=== PATIENT | male | born 1965 | race Caucasian/White ===

== ENCOUNTER 2024-09-13 11:18 | Emergency (ER) | payer SELFPAY ==
[2024-09-13 11:23] VITALS: BP 131/90
[2024-09-13 11:53] LABS: % Basophils 0.3 % (0-2); % Immature Granulocytes 0.5 % (0-0.5); % Lymphocytes 11.5 % (20.5-51.1); % Neutrophils 73.7 % (42.2-75.2); Absolute Lymphocytes 0.9 10^3/uL (1.2-3.4); Absolute Monocytes 1.1 10^3/uL (0.1-0.6); Absolute Neutrophils 5.6 10^3/uL (1.4-6.5); Hematocrit 43.8 % (39.0-52.0); Hemoglobin 14.9 g/dL (13.0-18.0); Mean Corpuscular Hgb 30.5 pg (27.0-31.0); Mean Corpuscular Volume 89.6 fL (80.0-94.0); Nucleated Red Blood Cells % 0 % (-); Platelet Count 185 10^3/uL (130-400); Red Blood Cell Count 4.89 10^6/uL (4.70-6.10); Red Cell Dist. Width 13.9 % (11.5-14.5); White Blood Cell Count 7.6 10^3/uL (4.8-10.8)
--- NOTE | 2024-09-13 12:03 | ED.SKININJ ---
Addendum entered and electronically signed by Zahra Pires NP 09/16/24 09:25:
Message left on pt phone. Pt notified of +MRSA blood cultures. They will return. She states is not acting any more sick but he's a tough old bird and has been walking around the house moaning, when she asks if he has a fever he states 'I don't
know.'
Instructed to return.
He has appointment with Dr. Antoine tomorrow.
Original Note:
HPI-Injury
<Levon Lozano PA-C - Last Filed: 09/13/24 18:40>
General
Chief Complaint: Skin Problem
Time Seen by Provider: 09/13/24 11:51
History of Present Illness-Injury
Is this injury a work related problem?: Yes
Is pt an associate of [facility]?: No
Initial Injury comments:
Patient is a 59-year-old male with no reported chronic medical problems here today with concern for a possible infection to his skin. He reports over the past 2 days he has had discoloration along the distal tips of some of his fingers most
pronounced along the right third finger with associated redness. There is mild pain that comes and goes and at times is severe in nature. No fevers. No pus or drainage noted. No vomiting. Patient has had a prior staph infection and has
previously required surgical treatment secondary to a finger infection in 2010. He also reports working in the cold.
Review of Systems
<Levon Lozano PA-C - Last Filed: 09/13/24 18:40>
Review of Systems
All Other Systems: ROS reviewed and negative except as documented in HPI and ROS
Phy Exam
<Levon Lozano PA-C - Last Filed: 09/13/24 18:40>
Physical Exam
Physical Exam:
GENERAL: Alert , in no apparent distress
EYE: pupils equal and reactive
NECK: Supple
SKIN: Warm and dry, skin intact.
MUSCULOSKELETAL: There is mild hyperpigmentation/dusky appearance along the majority of the fingertips along the bilateral hands, there are scattered dried scabbed over wounds along the distal tips of some of the fingers, along the right third
finger is a moderate amount of swelling with erythema and tenderness extending proximally, range of motion is intact, pulses 2+ throughout, sensation intact
PSYCH: Normal and appropriate interaction.
Course
<Levon Lozano PA-C - Last Filed: 09/13/24 18:40>
Orders/Labs/Results
Orders:
Orders
09/13/24 11:34
Complete Blood Count/With Diff Urgent
Comprehensive Metabolic Panel Urgent
09/13/24 12:06
CR Hand - Left Min 3 Views Urgent
Comment:
Reason For Exam: finger wounds
CR Hand - Right Min 3 Views Urgent
Comment:
Reason For Exam: finger wounds
09/13/24 12:07
Hydrocodone 5/APAP 325 [[place] 5/325] 1 tablet PO NOW STA
09/13/24 12:34
CRP [C-Reactive Protein] Urgent
ESR [Erythrocyte Sed Rate] Urgent
Lactic Acid Urgent
Blood Culture Q30M
CA Source: Blood/Venous
Specimen Description:
Blood Culture Q30M
CA Source: Blood/Venous
Specimen Description:
09/13/24 15:48
Hydrocodone 5/APAP 325 [[place] 5/325] 1 tablet PO NOW STA
Abnormal Lab Results
09/13/24 09/13/24
11:34 12:34
Absolute Lymphs (auto) 0.9 L 10^3/uL
(1.2-3.4)
Absolute Monos (auto) 1.1 H 10^3/uL
(0.1-0.6)
Lymphocytes % 11.5 L %
(20.5-51.1)
Monocytes % 14.0 H %
(1.7-9.3)
Sodium 134 L mmol/L
(135-145)
BUN 26 H mg/dl
(9-20)
Glucose 117 H mg/dl
(70-99)
C-Reactive Protein 48.10 H mg/L
(0.0-10.00)
09/13/24 11:34
09/13/24 11:34
Vital Signs
Initial and Last Documented VS:
Initial Vital Signs
Temp Pulse Resp BP Pulse Ox
98.4 F 71 18 131/90 94
09/13/24 11:23 09/13/24 11:23 09/13/24 11:23 09/13/24 11:23 09/13/24 11:23
Last Documented Vital Signs
Temp Pulse Resp BP Pulse Ox
98.4 F 84 18 135/88 95
09/13/24 11:23 09/13/24 19:00 09/13/24 19:00 09/13/24 19:00 09/13/24 19:00
<Eb Moran, DO - Last Filed: 09/14/24 22:34>
Orders/Labs/Results
Orders:
Orders
09/13/24 11:34
Complete Blood Count/With Diff Urgent
Comprehensive Metabolic Panel Urgent
09/13/24 12:06
CR Hand - Left Min 3 Views Urgent
Comment:
Reason For Exam: finger wounds
CR Hand - Right Min 3 Views Urgent
Comment:
Reason For Exam: finger wounds
09/13/24 12:07
Hydrocodone 5/APAP 325 [[place] 5/325] 1 tablet PO NOW STA
09/13/24 12:34
CRP [C-Reactive Protein] Urgent
ESR [Erythrocyte Sed Rate] Urgent
Lactic Acid Urgent
Blood Culture Q30M
CA Source: Blood/Venous
Specimen Description:
Blood Culture Q30M
CA Source: Blood/Venous
Specimen Description:
09/13/24 15:48
Hydrocodone 5/APAP 325 [[place] 5/325] 1 tablet PO NOW STA
Abnormal Lab Results
09/13/24 09/13/24
11:34 12:34
Absolute Lymphs (auto) 0.9 L 10^3/uL
(1.2-3.4)
Absolute Monos (auto) 1.1 H 10^3/uL
(0.1-0.6)
Lymphocytes % 11.5 L %
(20.5-51.1)
Monocytes % 14.0 H %
(1.7-9.3)
Sodium 134 L mmol/L
(135-145)
BUN 26 H mg/dl
(9-20)
Glucose 117 H mg/dl
(70-99)
C-Reactive Protein 48.10 H mg/L
(0.0-10.00)
09/13/24 11:34
09/13/24 11:34
Vital Signs
Initial and Last Documented VS:
Initial Vital Signs
Temp Pulse Resp BP Pulse Ox
98.4 F 71 18 131/90 94
09/13/24 11:23 09/13/24 11:23 09/13/24 11:23 09/13/24 11:23 09/13/24 11:23
Last Documented Vital Signs
Temp Pulse Resp BP Pulse Ox
98.4 F 84 18 135/88 95
09/13/24 11:23 09/13/24 19:00 09/13/24 19:00 09/13/24 19:00 09/13/24 19:00
<Levon Lozano PA-C - Last Filed: 09/13/24 18:40>
MDM/Problems Addressed
Differential Diagnosis Includes:
Patient is a 59-year-old male with no reported chronic medical problems here today with concern for a possible infection to his skin. Overall, patient appears well. Vitals grossly within normal limits aside from a mildly elevated blood pressure.
Physical examination described above. I am concerned for a possible skin infection of the fingers given appearance. Will begin with screening labs and x-rays. Will provide pain control.
09/13/2024 18:03: Screening labs without evidence of significant infectious process. CRP elevated. X-rays of the hands reveal findings consistent with acro osteolysis involving the distal crissy of the second and third fingers of both hands, likely
related to frostbite injury. Case was discussed with orthopedic hand surgeon, Dr. Antoine. He recommends discharge with close outpatient follow-up with hand surgery next week. He also recommends re-warming techniques with 'heat any way is fine'.
Patient made aware of plan. Case also discussed with the ED attending, Dr. Bennett. Plans for discharge with close outpatient follow-up. Patient voiced understanding of the above plan. He appears well and stable for discharge. All questions
answered.
<Levon Lozano PA-C - Last Filed: 09/13/24 18:40>
*Critical Care Note
Total Time (30-74mins, 75-104mins- exclusive of procedures): Not Applicable
<Eb Moran DO - Last Filed: 09/14/24 22:34>
Update Note
Update Note:
Called patient on 09/14/2024 at 10:33 PM to discuss blood culture results, and 1 single culture showed gram-positive cocci in clusters, suspect contaminant. Patient denies any fevers. He will follow-up with Dr. Antoine. Return precautions given.
ED Attending Note
<Levon Lozano PA-C - Last Filed: 09/13/24 18:40>
-
Portions of this chart may have been created with voice recognition software.� Occasional wrong word or��sound alike� substitutions may have occurred due to the inherent limitations of voice recognition software.
Discharge Plan
Departure
Patient Disposition: Home (Routine Discharge)
Date of Disposition: 09/13/24
Time of Disposition: 18:39
Patient with high blood pressure during this ER visit?: Yes
Condition: Fair
Covid-19: Not Applicable
Discharge Problem:
Frostbite of finger of right hand, Frostbite of finger of left hand, Acro osteolysis syndrome
Instructions: Frostbite (DC)
Prescriptions:
New
hydrocodone-acetaminophen 5-325 mg tablet
1 tab PO Q8H PRN (Reason: Pain) Qty: 9 0RF
No Action
Theragen Tablet
1 tab PO DAILY
ibuprofen [Advil] 200 mg Tablet
200 mg PO Q6HPRN PRN (Reason: mild pain)
Referrals:
Johnie Antoine MD [Active] - Follow up in 5-7 days
UNKNOWN - PT DOES,NOT KNOW [Family Provider] -
Stand Alone Forms: Return to Work
Activity Restrictions/Additional Instructions:
You were seen today for evaluation of discoloration and pain along your fingertips.
You have evidence of frostbite.
We discussed your case with orthopedics who recommends rewarming over the next 5 to 7 days.
For pain, we are prescribing you hydrocodone�acetaminophen to take as directed. Avoid taking additional Tylenol with this medication. This may cause drowsiness. No driving, drinking alcohol, or operating machinery with this medication.
Please avoid cold weather and using your fingers.
We recommend following up with the orthopedic hand surgery team within the next 5 to 7 days for close reevaluation.
Return for any new, worsening, or concerning symptoms.
Interventions
Interventions:
*Risk Screen - Suicide Last Done: 09/13/24 11:23
*General Assessment Last Done: 09/13/24 11:23
*Neglect/Abuse Screening Last Done: 09/13/24 11:23
ED- Fall Risk Assessment Last Done: 09/13/24 17:15
*ED COVID-19 Vaccine History Last Done: 09/13/24 16:07
*Nursing Disposition Last Done: 09/13/24 17:15
ED-Skin Assessment Last Done: 09/13/24 17:15
Discharge Date and Time
Discharge Date/Time: 09/13/24 19:35
Print Language: THAI
[2024-09-13 12:05] VITALS: BP 141/78
[2024-09-13 12:06] LABS: ALT (SGPT) 27 U/L (0-50); AST (SGOT) 48 U/L (17-59); Albumin 4.6 g/dl (3.5-5.0); Alkaline Phosphatase 91 U/L (38-126); Blood Urea Nitrogen 26 mg/dl (9-20); Carbon Dioxide 22 mmol/L (22-30); Chloride 100 mmol/L (98-107); Glucose 117 mg/dl (70-99); Potassium 4.2 mmol/L (3.5-5.1); Sodium 134 mmol/L (135-145); Total Bilirubin 0.6 mg/dl (0.2-1.3); Total Protein 7.2 g/dl (6.3-8.2); eGFR > 60.00
[2024-09-13] MEDS: NORCO 5/325 1 TABLET PO ×2 (12:17→15:53)
[2024-09-13 13:13] LABS: Lactic Acid 1.4 mmol/L (0.7-2.0)
[2024-09-13 13:30] VITALS: BP 141/80
[2024-09-13 13:31] LABS: Erythrocyte Sed Rate 19 mm/hour (0-20)
[2024-09-13 16:30] VITALS: BP 127/95
[2024-09-13 19:00] VITALS: BP 135/88
== END 2024-09-13 19:35 | disposition home or self-care (01) ==
LOC: EMR 11:18
PROVIDERS: Physician Assistant; EMERGENCY PHYSICIAN Emergency Medicine
DX: T33.539A Superficial frostbite of unspecified finger(s), initial encounter (principal); X58.XXXA Exposure to other specified factors, initial encounter
CPT/HCPCS: 99283; 73130; 80053; 83605; 85025; 85652; 86140; 87040; 87150; 87186; 87205

== ENCOUNTER 2024-09-16 15:36 | Inpatient (IN) | payer BC, SELFPAY ==
[2024-09-16 11:05] VITALS: BP 148/94
--- NOTE | 2024-09-16 12:46 | ED.MUSCINJ ---
HPI-Injury
General
Chief Complaint: Soft Tissue Injury
Source: patient and spouse
Exam Limitations: none
Time Seen by Provider: 09/16/24 12:36
Nursing documentation reviewed up to this point in time: agreed with
History of Present Illness-Injury
Initial Injury comments:
59-year-old male seen here on 09/13 for frostbite of his fingers and diagnosed with acro osteolysis and discharged to follow-up with a hand specialist. He has an appointment with Dr. nAtoine tomorrow.
Today his blood culture came back positive with staph aureus MRSA so he was called to come back.
Patient states he has been in pain with his hands since his first visit, he is felt chilled, has not been feeling 'well.' He states he had really bad chills Monday and Monday night at bedtime and throughout the night both nights.
He denies chest pain or trouble breathing, denies abdominal pain, N/V/C/D
Past History
Past History
ED Past Medical History: Other
ED Past Surgical History: Orthopedic (R index finger infection 2010, removal of finger tip)
Social History
Tobacco: Smoker
Personal:
Living: with family
Employment: Employed
Review of Systems
Review of Systems
Allergies reviewed?: Yes
All Other Systems: ROS reviewed and negative except as documented in HPI and ROS
Constitutional: Reports fever and chills
EENT: Reports other (sores on upper and lower lips); Denies sore throat
Respiratory: Denies cough or trouble breathing
Cardiac: Denies chest pain or diaphoresis
ABD/GI: Denies abdominal pain, nausea, vomiting or diarrhea
: Denies dysuria or difficulty voiding
Skin: Reports other (discoloration, sores on tips of fingers both hands)
Neurological: Reports no symptoms
Phy Exam
Physical Exam
Physical Exam:
GENERAL: No acute distress. A&Ox3.
CONSTITUTIONAL: Afebrile.
EYES: clear, conjunctivae normal
ENMT: moist mucus membranes, Pharynx nl
RESPIRATORY: Regular respirations, nonlabored, lungs clear.
CARDIOVASCULAR: Regular rate and rhythm, no murmurs, no rubs.
GI: Soft, nontender, normal BS
MUSCULOSKELETAL: Moves with ease. Well perfused.
SKIN: Warm, dry, pink. Crusted sores on upper and lower lips. Right middle finger black at the tip, swollen and mildly erythematous. Right thumb, middle and ring fingers have tiny scabs at the tips and are swollen and mildly erythematous. Left
thumb, index and middle fingertips also with small scabs and erythema.
PSYCH: Normal mood and affect. Well kept, interactive and appropriate
NEUROLOGIC: Awake, alert and oriented. No focal neurological deficits
Injury Course
Orders/Labs/Results
Orders:
Orders
09/16/24 Lunch
Regular
At Your Request: Full Participation
09/16/24 13:05
Complete Blood Count/With Diff Urgent
Comprehensive Metabolic Panel Urgent
Blood Culture Q30M
CA Source: Blood/Venous
Specimen Description:
Blood Culture Q30M
CA Source: Blood/Venous
Specimen Description:
09/16/24 13:37
Vancomycin [Vancocin] 1,500 mg 0.9% Sodium Chloride 500 ml [Nss] 500 ml IV NOW
09/16/24 14:52
ORTHOPEDIC CONSULT Urgent
Consulting Provider: Johnie Antoine
Was physician already notified: Yes
Reason for consult: acro osteolysis fingers both hands
09/16/24 14:53
Admit/Transfer Patient As Directed
Co-Sign Provider:
Level of Care: Inpatient admission
Assign to:: Medical/Surgical
Physician / Group: Hospitalist
Diagnosis: acro-osteolysis, Bacteremia
Reason for Hospitalization: as above
Expected length of stay greater than two midnights?: Yes
ELOS- Estimated Length of Stay in days: 3
I certify the patient meets the requirements for IP care: Yes
09/16/24 14:58
Code Status As Directed
Resuscitation Status: Full Code
09/16/24 15:59
Consult Infectious Disease [INFECTIOUS DISEASE CONSULT] Routine
Consulting Provider: Loren Hanley
Was physician already notified: Yes
Reason for consult: bacteremia
Abnormal Lab Results
09/16/24
13:05
RBC 4.41 L 10^6/uL
(4.70-6.10)
Calcium 7.5 L mg/dl
(8.4-10.2)
Total Protein 5.7 L g/dl
(6.3-8.2)
09/16/24 13:05
09/16/24 13:05
MDM/Problems Addressed
Differential Diagnosis Includes:
Bacteremia, sepsis, cellulitis of the fingers
MDM/Problems Addressed:
59-year-old male seen here on 09/13 for frostbite of his fingers and diagnosed with acro osteolysis and discharged to follow-up with a hand specialist. He has an appointment with Dr. Antoine tomorrow.
Today his blood culture came back positive with staph aureus MRSA so he was called to come back.
Patient states he has been in pain with his hands since his first visit, he is felt chilled, has not been feeling 'well.' He states he had really bad chills Monday and Monday night at bedtime and throughout the night both nights.
He denies chest pain or trouble breathing, denies abdominal pain, N/V/C/D
Patient states the discoloration and swelling of his fingers is much improved since initial visit. The fingers are still painful and he has been taking Vicodin once or twice a day.
states he has been writhing around in pain much of the time, laying on the floor by their fireplace to get warm
Temp 99.1
2:00 p.m.
Returns today for positive blood cultures MRSA, attempt to admit for IV antibiotics but hospitalist wants ortho exam in case he has to be transferred to a burn center. He states his fingers are improving.
2:30 p.m.
Contacted orthopedic doctor precision crop manager Dr. Lai who requested I contact Dr. Antoine.
Sent Dr. Antoine pictures of hands/fingers: he texted back: 'can see him while he is in the hospital
but most likely won�t do anything'
Hospitalist notified and in to admit
Vancomycin started.
Blood cx pending
*Critical Care Note
Total Time (30-74mins, 75-104mins- exclusive of procedures): Not Applicable
ED Attending Note
-
Portions of this chart may have been created with voice recognition software.� Occasional wrong word or��sound alike� substitutions may have occurred due to the inherent limitations of voice recognition software.
Discharge Plan
Departure
Patient Disposition: Admit
Date of Disposition: 09/16/24
Time of Disposition: 13:34
Admit to: Med/Surg
Presentation/result/management discussed w/ accepting MD/DO: Hospitalist
Condition: Fair
Discharge Problem:
Bacteremia due to methicillin resistant Staphylococcus aureus, Acro-osteolysis syndrome
Interventions
Interventions:
*Risk Screen - Suicide Last Done: 09/16/24 11:05
*Neglect/Abuse Screening Last Done: 09/16/24 11:05
ED- Fall Risk Assessment Last Done: 09/16/24 12:15
ED-Skin Assessment Last Done: 09/16/24 12:15
[2024-09-16 13:17] LABS: % Basophils 0.2 % (0-2); % Eosinophils 0.2 % (0-6); % Immature Granulocytes 0.3 % (0-0.5); % Lymphocytes 20.9 % (20.5-51.1); % Monocytes 8.7 % (1.7-9.3); % Neutrophils 69.7 % (42.2-75.2); Absolute Lymphocytes 1.2 10^3/uL (1.2-3.4); Absolute Monocytes 0.5 10^3/uL (0.1-0.6); Absolute Neutrophils 4.1 10^3/uL (1.4-6.5); Hematocrit 39.9 % (39.0-52.0); Hemoglobin 13.6 g/dL (13.0-18.0); Mean Corp Hgb Conc. 34.1 g/dL (33.0-37.0); Mean Corpuscular Hgb 30.8 pg (27.0-31.0); Mean Corpuscular Volume 90.5 fL (80.0-94.0); Mean Platelet Volume 9.3 fL (7.4-10.4); Nucleated Red Blood Cells % 0 % (-); Platelet Count 143 10^3/uL (130-400); Red Blood Cell Count 4.41 10^6/uL (4.70-6.10); Red Cell Dist. Width 13.6 % (11.5-14.5); White Blood Cell Count 5.8 10^3/uL (4.8-10.8)
[2024-09-16 13:31] LABS: ALT (SGPT) 19 U/L (0-50); AST (SGOT) 26 U/L (17-59); Albumin 3.6 g/dl (3.5-5.0); Alkaline Phosphatase 72 U/L (38-126); Blood Urea Nitrogen 17 mg/dl (9-20); Calcium 7.5 mg/dl (8.4-10.2); Carbon Dioxide 22 mmol/L (22-30); Chloride 106 mmol/L (98-107); Glucose 98 mg/dl (70-99); Potassium 3.7 mmol/L (3.5-5.1); Sodium 137 mmol/L (135-145); Total Bilirubin 0.5 mg/dl (0.2-1.3); Total Protein 5.7 g/dl (6.3-8.2); eGFR > 60.00
[2024-09-16 13:37] VITALS: BP 148/76
[2024-09-16] MEDS: VANCOCIN 530 MG IV (14:42)
--- NOTE | 2024-09-16 15:05 | HPS.HSE ---
Addendum entered and electronically signed by Bill Mckeon MD 09/16/24 18:16:
Presented after recent ed visit for frostbite injury on the digits with xray showing acro osteolysis, worse on the riight hand, with most pain focused on the stump of the 3rd digit. Returned for + bcx with mrsa.
MRSA bacteremia
-Vanc 15mg/kg, goal trough 18-20 (or per ID/pharmacy)
-Repeat bcx x2 30mins apart
-2d echo
-ID consult
Acro Osteolysis
-Ortho consulted
-Wound care
Right elbow pain (states he has metal shaving embedded in his elbow from working)
-Will check xray right elbow
Right ankle pain (states from chipped bone)
-Check ankle xray
Original Note:
Family Physician
-
Family Physician: Shannan Vazquez
Chief Complaint
-
Bilateral finger pain and discoloration
History of Present Illness
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
bilateral hand. Patient was recently in the ED 09/13/2024 due to frostbites of some of his fingers. X-ray of bilateral fingers at the ED visit 09/13 showed acro-osteolysis involving the distal crissy of the second and third fingers of both hands,
likely related to frostbite injury. At that ED visit, cultures were obtained and he was discharged to follow-up Ortho as an outpatient. Cultures returned back positive for MRSA Staph aureus 1 out of 2. Patient states pain was uncontrollable
despite taking Percocet, and with positive MRSA bacteremia was asked to return back to the ED. At bedside today, he denies fever, chills. He admits right elbow pain and right ankle bony spur ongoing for the past few months. Patient works at a
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
On presentation to ER, BP 148/76, pulse 62, respiratory rate 18, afebrile, with O2 sat 97% on room air. CBC with WBC 5.8, hemoglobin 13.6, hematocrit 39.9, platelets 143. Electrolytes showed sodium 137, potassium 3.7, creatinine 0.7.
Medical History
Past Medical History
Past Medical History: Reports Other (Right index DIP osteomyelitis s/p trauma to finger)
Past Surgical History: Reports Other (Right index fingertip at the DIP joint level amputation)
Social History
Tobacco: Smoker (1 pack/day)
Alcohol: Occasional
Drug: None
Personal:
Living: With Family
Employment: Employed
Family History
Family History: Not pertinent
Allergies / Home Medications
Allergies reflects when Allergies were last updated in [facility].
Home Medications with original date entered in [facility]
Allergy/Medication List:
Allergies
Allergy/AdvReac Type Severity Reaction Status Date / Time
Penicillins Allergy Unknown Unknown Verified 09/16/24 11:05
Home Medications
ibuprofen 200 mg tablet (Advil) 200 mg PO Q6HPRN PRN mild pain 09/13/24
hydrocodone 5 mg-acetaminophen 325 mg tablet 1 tab PO Q8HPRN PRN mild Pain 09/16/24
Review of Systems
-
History Source: Patient
Constitutional: Reports See HPI
Cardiac: Denies Chest Pain or Diaphoresis
Musculoskeletal: Reports See HPI
Physical Exam
Vital Signs
Vital Signs
Temp Pulse Resp BP Pulse Ox
99.1 F 62 18 148/76 97
09/16/24 11:05 09/16/24 13:37 09/16/24 13:37 09/16/24 13:37 09/16/24 13:37
Physical Exam
General: Well Developed, Well Nourished and No Apparent Distress
HEENT: Other (Oral erythematous crusted sores present on the upper and lower lips)
Respiratory: Clear
Cardiac: S1/S2 and Regular Rhythm; No Murmur
GI: Soft, Non Tender, Non Distended and Normal Bowel Sounds
Musculoskeletal: Other (Right elbow pain, )
Skin: Other (On the right hand, right thumb, middle and ring distal phalanx with eschar present at the tip. On the left hand, left thumb, index, middle distal phalanx with eschar present at the tip)
Neuro: Awake, Alert, Oriented and AO x 3
Psych: Calm
Laboratory Results
-
09/16/24 13:05
09/16/24 13:05
Laboratory Results
Total Bilirubin 0.5 mg/dl (0.2-1.3) 09/16/24 13:05
AST 26 U/L (17-59) 09/16/24 13:05
ALT 19 U/L (0-50) 09/16/24 13:05
Alkaline Phosphatase 72 U/L (38-126) 09/16/24 13:05
Impression/Plan
-
Assessment/plan
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
-Ortho consulted
-Pain medication with morphine
-Hand x-ray 09/13 there is resorption of the distal crissy of the second and third fingers bilaterally compatible with acro-osteolysis. The carpal rows are preserved bilaterally. There are mild degenerative changes of the distal radial ulnar joints
bilaterally.
#MRSA bacteremia likely due to recurrent osteomyelitis
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
-Blood cultures obtained 09/13 positive for MRSA bacteremia 1 out of 2
-Repeat blood cultures x 2
-Initiated on IV vancomycin
-Consult ID
-Echocardiogram
-Follow temp, WBC
-Ortho consulted
#Right ankle and elbow pain possible due Avulsion fracture
-Check Xray studies for R Ankle/elbow.
#Active Smoker
-Nicotine Patch
CODE STATUS-full code
DVT prophylaxis:Lovenox
[2024-09-16] MEDS: MORPHINE SULFATE 1 MG IV (15:55)
--- NOTE | 2024-09-16 17:09 | CON.ID ---
Consultation
-
Date/Time Consultation Requested: 09/16/2024 1452
Date/Time Consultation Performed: 09/16/2024 1640
Requesting Provider: Dr. John
Performing Provider: Dr. Salazar
Reason for Consultation: MRSA bacteremia
Chief Complaint / Past History
History of Present Illness
Sudhakar Mckeon is a 59-year-old man being evaluated regarding MRSA bacteremia. History is obtained from chart review, along with patient interview.
The patient does not have a significant past medical history, but does work as a steel unloader on structural steel. He reports that he has been working in [facility] around the [facility] area. He notes that last week there was
significant snow and he did not work but Monday he was out in the cold most of the day. Monday he noted that he developed frostbite after he developed severe pain in his fingertips late in the day and he additionally notes that he found it
difficult to sleep. He presented to the emergency room here at [facility] on 09/13 secondary to the pain. He also noted that the distal tips of several of his fingers have become discolored. While in the emergency room he had blood
cultures obtained, which have become positive. He was called back to the emergency room secondary to positive blood cultures.
He denies any headache. He denies any fevers or chills. He denies any erythema moving up his forearms. He denies any chest pain or shortness of breath. He denies any abdominal pain.
Past History
Past Medical History: None
Additional Past Surgical History:
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
Allergy History:
Penicillins Allergy (Unknown, Verified 09/16/24 11:05)
Unknown
Medications Reviewed: Yes
Current Antibiotics:
Vancomycin
Social History
Tobacco: Smoker (1 pack/day)
Alcohol: Occasional
Drug: None
Personal:
Living: With Family
Employment: Employed
Family History
Family History: Not Pertinent
Review of Systems
Vital Signs
Temp Pulse Resp BP Pulse Ox
99.1 F 62 18 148/76 97
09/16/24 11:05 09/16/24 13:37 09/16/24 13:37 09/16/24 13:37 09/16/24 13:37
Physical Exam
Physical Exam
Constitutional: No Acute Distress, Comfortable and Non-toxic
Head: Normocephalic
Eyes: Pupils Equal, Pupils Round, No Conjunctival Hemorrhage and Sclera Anicteric
Oral: No Thrush and No Ulcers
Cardiovascular: Regular Rate and S1/S2; Negative S3/S4
Pulmonary: Clear; Negative Wheezes, Rales or Rhonchi
Gastrointestinal: Soft, Non Tender, Non Distended, Normal Bowel Sounds, No Rebound and No Guarding
Genito-Urinary: Negative Suazo
Extremities: Edema
Musculoskeletal: Other (Tips of several fingers are discolored, with swelling.)
Skin: Warm and Dry
Neurological: Awake and Alert
Psychological: Calm
Lab / Diagnostic Study Results
09/16/24 13:05
09/16/24 13:05
Abs Immat Gran (auto) 0.0 10^3/uL (0-0.05) 09/16/24 13:05
Absolute Neuts (auto) 4.1 10^3/uL (1.4-6.5) 09/16/24 13:05
Absolute Lymphs (auto) 1.2 10^3/uL (1.2-3.4) 09/16/24 13:05
Absolute Monos (auto) 0.5 10^3/uL (0.1-0.6) 09/16/24 13:05
Absolute Basos (auto) 0.0 10^3/uL (0-0.2) 09/16/24 13:05
Immature Gran % 0.3 % (0-0.5) 09/16/24 13:05
Neutrophils % 69.7 % (42.2-75.2) 09/16/24 13:05
Lymphocytes % 20.9 % (20.5-51.1) 09/16/24 13:05
Monocytes % 8.7 % (1.7-9.3) 09/16/24 13:05
Eosinophils % 0.2 % (0-6) 09/16/24 13:05
Basophils % 0.2 % (0-2) 09/16/24 13:05
Microbiology Results
Micro:
09/16/24 13:05 Blood Culture - Pending
Blood/Venous
09/16/24 13:05 Blood Culture - Pending
Blood/Venous
09/13/24 12:34 Blood Culture - Preliminary
Blood/Venous Gram Stain - Preliminary
Staph aureus MRSA
Organism 1 Staph aureus MRSA
1. Staph aureus MRSA
M.I.C. RX
--------- ---
Amoxicillin/Potas. Clavulanate <=4/2 R
Ampicillin >8 R
Clindamycin <=0.5 S
Gentamicin <=4 S
Erythromycin >4 R
Levofloxacin <=1 S
Oxacillin >2 R
Tetracycline <=4 S
Trimethoprim/Sulfamethoxazole <=0.5/9.5 S
Vancomycin 1 S
Imaging:
09/13/2024 X-ray bilateral hands: No fracture. Resorption of the distal crissy of the second and third fingers bilaterally compatible with acro osteolysis. The carpal rows are preserved bilaterally. Mild degenerative changes of the distal radial
and ulnar joints bilaterally.
Assessment / Plan
MRSA bacteremia
-Suspect secondary to fingers
Bilateral finger frostbite
Elevated CRP
Recommendations:
Continue with vancomycin for the present.
Repeat blood cultures have been obtained to assess for clearance.
Will check echocardiogram to assure no cardiac involvement.
Monitor white count temperature curve.
Local care to the fingers.
Await evaluation by Orthopedics
[2024-09-16 19:00] VITALS: BP 154/82
--- NOTE | 2024-09-16 20:14 | PHA.VAN.IN ---
Assessment
- Assessment
Renal Function: Other (09/13/24 BASELINE SCR: 1.0)
Concomitant Antimicrobials: NONE
- Previous Dosing Experience
Previous Regimen: NONE
AUC Dosing Plan
- Dosing Variables
Dosing Weight (kg): 70.7
Dosing CrCl (ml/min): 100
Vd coefficient (L/kg): 0.7
- Empiric Dosing
Initial / Loading Dose: 1500MG
Maintenance Regimen: 1GM IV Q12H
Estimated AUC (mcg*h/mL): 483
Estimated Peak (mcg*h/mL): 31.1
Estimated Trough (mcg/ml): 11.9
Estimated Half Life (H): 7.9
Pharmacokinetics Vancomycin I
- -
Patient Age: 59
Patient Sex: Male
Vancomycin Day #: 1
Indication: Bacteremia
Requesting Provider: MARTÍN
Pertinent Antimicrobial Allergies:
Allergies
Penicillins Allergy (Unknown, Verified 09/16/24 11:05)
Unknown
Height / Weight:
Height 5 ft 9 in
Actual Weight 56.699 kg
IBW in k.7
Pertinent Past Medical History: RECENT FROSTBITE
- Vital Signs / Lab Results
Temp Pulse Resp BP Pulse Ox
99.1 F 62 18 148/76 97
09/16/24 11:05 09/16/24 13:37 09/16/24 13:37 09/16/24 13:37 09/16/24 13:37
Lab Results - Hematology
09/16/24
13:05
WBC 5.8
Lab Results - Chemistry
09/16/24
13:05
BUN 17
Creatinine 0.7
Albumin 3.6
[2024-09-16 20:20] VITALS: BP 154/82
[2024-09-16 21:37] VITALS: BP 144/91; BMI 17.2
[2024-09-16] MEDS: MORPHINE SULFATE 2 MG IV (21:40)
--- NOTE | 2024-09-16 21:40 | PTCARENOTE ---
Patient brought from 4E to unit on hospital bed. AAA x3. Patient is cooperative with care. Discussed pain management. Oriented to unit. Call pepper within reach.
[2024-09-16] MEDS: LOVENOX 40 MG SC (21:43)
[2024-09-16 23:44] VITALS: BP 139/86
[2024-09-17] MEDS: VANCOCIN 200 IV (05:21)
[2024-09-17] MEDS: MORPHINE SULFATE 2 MG IV (05:50)
[2024-09-17 07:14] VITALS: BP 165/96
--- NOTE | 2024-09-17 07:46 | PHA.VAN.FU ---
Vancomycin Assessment / Plan
- Assessment
Renal Function: Stable
WBC's are: WNL
In the past 24 hrs, patient has been: Afebrile
- Dosing Plan
Adjust Regimen to: 750MG Q12H
New Regimen Predicts: AUC (551), Peak (33.8), Trough (14.6)
- Monitoring Plan
No level(s) ordered at this time: Consider levels in next few days
- Follow Up
Pharmacy will continue to follow.
Vancomycin Follow UP
- -
Patient Age: 59
Patient Sex: Male
Vancomycin Day #: 2
Indication: Bacteremia
Requesting Provider: MARTÍN
Pertinent Antimicrobial Allergies:
Allergies
Penicillins Allergy (Unknown, Verified 09/16/24 11:05)
Unknown
Height / Weight:
Height 5 ft 9 in
Actual Weight 52.702 kg
IBW in k.7
Pertinent Past Medical History: RECENT FROSTBITE
- Vital Signs / Lab Results
Temp Pulse Resp BP Pulse Ox
99.0 F 91 18 139/86 97
09/16/24 23:44 09/16/24 23:44 09/16/24 23:44 09/16/24 23:44 09/16/24 23:44
Lab Results - Hematology
09/16/24
13:05
WBC 5.8
Lab Results - Chemistry
09/16/24
13:05
BUN 17
Creatinine 0.7
Albumin 3.6
[2024-09-17] MEDS: NICODERM TRANSDERMAL 14 MG TRANSDERM (07:51)
--- NOTE | 2024-09-17 07:58 | W.PN.HOSP.TC ---
Addendum entered and electronically signed by Bill Mckeon MD 09/17/24 15:50:
MRSA bacteremia
-Vanc 15mg/kg, goal trough 18-20 (or per ID/pharmacy)
-Repeat bcx pending
-2d echo 60-65% no VHD, no WMA
-ID following
Acro Osteolysis
-Ortho following, no surgical intervention, allow for demarcation
-Wound care
Original Note:
Today's Communication/Plan
-
;/
Assessment / Plan
Assessment / Plan
Assessment/plan
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
-Ortho consulted, pending recommendation
-IV Dilaudid as needed
-Hand x-ray 09/13 there is resorption of the distal crissy of the second and third fingers bilaterally compatible with acro-osteolysis. The carpal rows are preserved bilaterally. There are mild degenerative changes of the distal radial ulnar joints
bilaterally.
#MRSA bacteremia
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
-Blood cultures obtained 09/13 positive for MRSA bacteremia 1 out of 2
-Repeat blood cultures x 2 pending
-Initiated on IV vancomycin
-ID consulted, input appreciated
-Echocardiogram- no significant valvular disease, no obvious vegetations visualized. LVEF 60-65%
-Follow temp, WBC
#Right ankle pain
-Ankle x-ray unremarkable. Consider MRI as an outpatient
#Right elbow pain
-Elbow x-ray no evidence of acute fracture or dislocation
#Active Smoker
-Nicotine Patch
CODE STATUS-full code
DVT prophylaxis:Lovenox
Anticipated Discharge: > 48 hours
Subjective/Interval History
-
Date of Service: September 17, 2024
Objective Data
-
Labs:
Laboratory Results
09/17/24
07:28
WBC Pending
Hgb Pending
Hct Pending
Plt Count Pending
Sodium Pending
Potassium Pending
Chloride Pending
Carbon Dioxide Pending
BUN Pending
Creatinine Pending
Glucose Pending
Calcium Pending
Vital Signs:
Vital Signs
Temp Pulse Resp BP Pulse Ox
99.0 F 91 18 139/86 97
09/16/24 23:44 09/16/24 23:44 09/16/24 23:44 09/16/24 23:44 09/16/24 23:44
I&O
09/16/24 09/17/24 09/18/24
06:59 06:59 06:59
Intake Total 240 / 240
Balance 240 / 240
Review of Systems
-
All other systems: Reviewed and negative (Except as documented)
Physical Exam
-
General: Well Developed, Well Nourished and No Apparent Distress
Respiratory: Clear to Auscultation
Cardiac: Regular Rhythm and S1/S2
GI: Soft, Nontender, Nondistended and Normal Bowel Sounds
Skin: Other (On the right hand, right thumb, middle and ring distal phalanx with eschar present at the tip. On the left hand, left thumb, index, middle distal phalanx with eschar present at the tip))
Neuro: Awake, Alert, Oriented and AO x 3
Psych: Calm
--- NOTE | 2024-09-17 08:31 | CON.ORTHO ---
Consultation
-
Date/Time Consultation Requested: 09/16/24, time unknown
Date/Time Consultation Performed: 09/17/24 @8am
Requesting Provider: Zahra Pires
Performing Provider: Leena Hernandez PA-C, Johnie Antoine MD
Reason for Consultation: bilateral hands
Consultation - Orthopedics
History
HPI: Miguel was admitted to [facility] due to bacteremia. He reports that on 09/13/24, he was evaluated in the ER due to pain in his right hand. 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 On the evening on 09/12/24, he
had increased pain in the tips of his index and middle fingers of the right hand. He states that the fingers were red, then turned a white color, and now are dark. He has a history of distal phalanx amputation of the index finger over [address] Calvillo. He states that he currently is experiencing some tingling in his fingers. He was informed yesterday that his blood cultures were positive and he shoulder return to the ER for further treatment.
PAST MEDICAL/SURGICAL HISTORY: right index finger osteomyelitis s/p amputation 2014 at the DIP joint level after trauma to the fingers
SOCIAL HISTORY: +smoker, denies alcohol
FAMILY HISTORY: Noncontributory
REVIEW OF SYSTEMS: 12 point review of systems obtained and negative except those mentioned in the HPI
Allergies / Home Medications
Allergy/AdvReac Type Severity Reaction Status Date / Time
Penicillins Allergy Unknown Unknown Verified 09/16/24 11:05
�Medication �Instructions �Recorded
ibuprofen 200 mg tablet (Advil) 200 mg PO Q6HPRN PRN mild pain 09/13/24
hydrocodone 5 mg-acetaminophen 325 1 tab PO Q8HPRN PRN mild Pain 09/16/24
mg tablet
Vital Signs / Lab Results
Temp Pulse Resp BP Pulse Ox
97.5 F 75 18 165/96 94
09/17/24 07:14 09/17/24 07:14 09/17/24 07:14 09/17/24 07:14 09/17/24 07:14
LABS:
Blood cultures from 09/13/24 +MRSA
RADIOGRAPHIC FINDINGS:
Xrays bilateral hand from 09/13/24 show no fractures. There is resorption of the distal crissy of the second and third fingers bilaterally compatible with acro osteolysis. The carpal rows are preserved bilaterally. There are mild degenerative changes
of the distal radial ulnar joints bilaterally.
IMPRESSION:
Findings consistent with acro osteolysis involving the distal crissy of the second and third fingers of both hands, likely related to frostbite injury.
PHYSICAL EXAM:
General: no acute distress
HEENT: NCAT, sclera anicteric, normal hearing
Heart: No JVD
Lungs: Normal work of breathing on room air
MSK: Directed exam of bilateral hands reveals right middle finger black at the tip, swollen and mildly erythematous. Right thumb, middle and ring fingers have tiny scabs at the tips and are swollen and mildly erythematous. Left thumb, index and
middle fingertips also with small scabs and erythema. Right index finger with previous distal phalanx amputation. Able to perform full range of motion bilateral hands. Makes a composite fist and extends all digits. Sensation decreased.
PSYCH: Normal mood and affect. Well kept, interactive and appropriate
NEUROLOGIC: Awake, alert and oriented. No focal neurological deficits
Assessment / Plan
ASSESSMENT/PLAN: Miguel has been admitted to [facility] for bacteremia (blood cultures +MRSA). He also has right hand pain and discolorations to the tips of the right fingers. Will need to allow for the area to demarcate. Appreciate ID
recommendations. Continue with IV antibiotics. Continue with pain management as needed. He was encouraged to perform range of motion as tolerated. Will also discuss with Dr. Antoine. No plans for surgical intervention today, may have diet. Will
continue to follow along.
[2024-09-17 08:36] LABS: % Basophils 0.5 % (0-2); % Eosinophils 0.5 % (0-6); % Immature Granulocytes 0.4 % (0-0.5); % Lymphocytes 24.5 % (20.5-51.1); % Monocytes 9.1 % (1.7-9.3); Absolute Lymphocytes 1.4 10^3/uL (1.2-3.4); Absolute Monocytes 0.5 10^3/uL (0.1-0.6); Absolute Neutrophils 3.6 10^3/uL (1.4-6.5); Hematocrit 39.9 % (39.0-52.0); Hemoglobin 13.3 g/dL (13.0-18.0); Mean Corp Hgb Conc. 33.3 g/dL (33.0-37.0); Mean Corpuscular Volume 90.1 fL (80.0-94.0); Mean Platelet Volume 10.3 fL (7.4-10.4); Nucleated Red Blood Cells % 0 % (-); Platelet Count 154 10^3/uL (130-400); Red Blood Cell Count 4.43 10^6/uL (4.70-6.10); Red Cell Dist. Width 13.6 % (11.5-14.5); White Blood Cell Count 5.5 10^3/uL (4.8-10.8)
[2024-09-17 08:55] LABS: Blood Urea Nitrogen 17 mg/dl (9-20); Calcium 8.3 mg/dl (8.4-10.2); Carbon Dioxide 24 mmol/L (22-30); Chloride 102 mmol/L (98-107); Estimated Creatinine Clearance 76 ml/min; Glucose 97 mg/dl (70-99); Potassium 3.9 mmol/L (3.5-5.1); Sodium 135 mmol/L (135-145); eGFR > 60.00
[2024-09-17] MEDS: DILAUDID 0.5 MG IV ×4 (10:38→22:42)
[2024-09-17] MEDS: FLUSH (NSS) 2 FLUSH IV ×2 (10:39→14:43)
--- NOTE | 2024-09-17 12:46 | W.PN.UPDATE ---
Update Note
Progress Note Update
Patient seen and examined
Bilateral fingertips with frostbites, dry gangrene. There is no evidence of proximal infection, no drainage.
He states that it was worse last week and some areas are appearing more vascularized
It will be best to allow for the area to demarcate. It may take weeks until that occurs
Will see him in the office next week.
Abx treatment for bacteremia per ID.
--- NOTE | 2024-09-17 13:46 | CM ---
CM reviewed chart, patient seen bedside, initial assessment completed. Patient resides with his and children in a multiple story home, independent with ADLS/IADLs, denies DME, VN, or SNF. Patient confirms PCP Shannan Vazquez, pharmacy [facility]
[place]. Consult received for Advance Directive, provided to patient. Patient currently on IV antibiotics. CM will continue to follow for all discharge planning needs.
Plan; home, watch for IV antibiotic needs.
--- NOTE | 2024-09-17 15:23 | W.PN.ID1 ---
Date of Service
Date of Service: September 17, 2024
Today's Communication
Continue antibiotics. See below�
Assessment / Plan
MRSA bacteremia
-Suspect secondary to fingers
Bilateral finger frostbite
Elevated CRP
Recommendations:
Repeat blood cultures have been obtained to assess for clearance.
Echocardiogram without vegetation.
Transition to daptomycin.
If cultures remain negative at 48 hours, can place PICC line.
Monitor white count & temperature curve.
Local care to the fingers.
Chief Complaint
-: Bacteremia (MRSA) and Other (Bilateral fingertip frostbite)
Subjective / Review of Systems
Patient seen and examined. Still with some pain in the fingers.
Review of Systems: No Fever and No Chills
Vital Signs / Physical Exam
Vital Signs
Vital Signs
Temp Pulse Resp BP Pulse Ox
97.5 F 75 18 165/96 94
09/17/24 07:14 09/17/24 07:14 09/17/24 07:14 09/17/24 07:14 09/17/24 07:14
Physical Exam
Constitutional: No Acute Distress, Comfortable and Non-toxic
Eyes: Sclera Anicteric
Cardiovascular: S1/S2; Negative S3/S4
Pulmonary: Non Labored
Gastrointestinal: Soft and Non Tender
Extremities: Other (Several fingertips with some dermal gangrene and dry wounds. No active drainage.)
Neurological: Awake and Alert
Psychological: Calm
Objective Data
Lab Data
Lab Results
09/17/24 07:28
09/17/24 07:28
Estimated Creat Clear 76 ml/min 09/17/24 07:28
Total Bilirubin 0.5 mg/dl (0.2-1.3) 09/16/24 13:05
AST 26 U/L (17-59) 09/16/24 13:05
ALT 19 U/L (0-50) 09/16/24 13:05
Alkaline Phosphatase 72 U/L (38-126) 09/16/24 13:05
Most recent labs reviewed.
Micro Results:
09/16/24 13:05 Blood Culture - Preliminary
Blood/Venous No Growth in 24 hours- Final report to follow
09/16/24 13:05 Blood Culture - Preliminary
Blood/Venous No Growth in 24 hours- Final report to follow
09/13/24 12:34 Blood Culture - Preliminary
Blood/Venous Gram Stain - Preliminary
Staph aureus MRSA
Organism 1 Staph aureus MRSA
1. Staph aureus MRSA
M.I.C. RX
--------- ---
Amoxicillin/Potas. Clavulanate <=4/2 R
Ampicillin >8 R
Clindamycin <=0.5 S
Gentamicin <=4 S
Erythromycin >4 R
Levofloxacin <=1 S
Oxacillin >2 R
Tetracycline <=4 S
Trimethoprim/Sulfamethoxazole <=0.5/9.5 S
Vancomycin 1 S
Imaging:
09/13/2024 X-ray bilateral hands: No fracture. Resorption of the distal crissy of the second and third fingers bilaterally compatible with acro osteolysis. The carpal rows are preserved bilaterally. Mild degenerative changes of the distal radial
and ulnar joints bilaterally.
[2024-09-17 15:44] VITALS: BP 139/119
[2024-09-17 17:15] VITALS: BMI 17.2
[2024-09-17] MEDS: CUBICIN 12 MG IV (18:38)
[2024-09-17] MEDS: FLUSH (NSS) 1 FLUSH IV ×2 (18:39→18:44)
[2024-09-17] MEDS: LOVENOX 40 MG SC (18:43)
[2024-09-17 23:47] VITALS: BP 139/95
[2024-09-18] MEDS: DILAUDID 0.5 MG IV ×7 (02:06→21:02)
[2024-09-18 07:30] VITALS: BP 151/91
--- NOTE | 2024-09-18 07:45 | W.PN.HOSP.TC ---
Addendum entered and electronically signed by Bill Mckeon MD 09/18/24 14:12:
RSA bacteremia
-Vanc 15mg/kg, goal trough 18-20 (or per ID/pharmacy)
-Repeat bcx pending
-2d echo 60-65% no VHD, no WMA
-ID following
-begin dc planningg
Acro Osteolysis
-Ortho following, no surgical intervention, allow for demarcation
-Wound care
Original Note:
Today's Communication/Plan
-
;/
Assessment / Plan
Assessment / Plan
Assessment/plan
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
-Ortho input appreciated, no surgical intervention, allow for demarcation
-IV Dilaudid as needed
-Hand x-ray 09/13 there is resorption of the distal crissy of the second and third fingers bilaterally compatible with acro-osteolysis. The carpal rows are preserved bilaterally. There are mild degenerative changes of the distal radial ulnar joints
bilaterally.
#MRSA bacteremia
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
-Blood cultures obtained 09/13 positive for MRSA bacteremia 1 out of 2
-Repeat blood cultures x 2 NGTD
-transitioned to daptomycin
-ID consulted, input appreciated
-Echocardiogram- no significant valvular disease, no obvious vegetations visualized. LVEF 60-65%
-Follow temp, WBC
#Right ankle pain
-Ankle x-ray unremarkable. Consider MRI as an outpatient
#Right elbow pain
-Elbow x-ray no evidence of acute fracture or dislocation
#Active Smoker
-Nicotine Patch
#BMI 17.2, underweight
CODE STATUS-full code
DVT prophylaxis:Lovenox
Anticipated Discharge: Within 24 hours
Subjective/Interval History
-
Date of Service: September 18, 2024
Objective Data
-
Vital Signs:
Vital Signs
Temp Pulse Resp BP Pulse Ox
98.7 F 84 18 139/95 97
09/17/24 23:47 09/17/24 23:47 09/17/24 23:47 09/17/24 23:47 09/17/24 23:47
I&O
09/17/24 09/18/24 09/19/24
06:59 06:59 06:59
Intake Total 240 / 240 480 / 480
Balance 240 / 240 480 / 480
Review of Systems
-
All other systems: Reviewed and negative (Except as documented)
Physical Exam
-
General: Well Developed, Well Nourished and No Apparent Distress
Respiratory: Clear to Auscultation
Cardiac: Regular Rhythm and S1/S2
GI: Soft, Nontender, Nondistended and Normal Bowel Sounds
Skin: Other (On the right hand, right thumb, middle and ring distal phalanx with eschar present at the tip. On the left hand, left thumb, index, middle distal phalanx with eschar present at the tip))
Neuro: Awake, Alert, Oriented and AO x 3
Psych: Calm
--- NOTE | 2024-09-18 08:45 | PN.CDI ---
CDI
- -
CDI:
Physician Documentation Request
Admit Date: 09/16/24 15:36
Dear Doctor Dora,
Please review the following and provide your response in the progress notes.
Clinical Indicators:
Hammer Smith, 09/17
#Per current clinical data at admission pt with wt loss and eating poorly.
#Review of available records shows remote weight of 138 lbs from 01-06-2014;
#...current wt 116 lbs 3 oz on 09-16-24 (standing, BMI 17.2-underwt).
Selected Entries
09/16/24
21:37
Body Mass Index (BMI) 17.2
Please provide an associated diagnosis related to the BMI, such as:
BMI 17.2, underweight
Other (please specify)
BMI < or = to 19
Underweight
Weight Loss
Cachectic
Anorexia
Use of terms such as suspected, likely, concern for, or probable (associated with a specific diagnosis that is being evaluated, monitored, or treated as if it exists) are acceptable and can be coded in the inpatient setting, when documented at the
time of discharge.
Thank you,
Teresa Burris RN BSN CCDS
CDI Specialist
please contact via tiger text
Please use your independent medical judgment in providing your response.
[2024-09-18] MEDS: NICODERM TRANSDERMAL 14 MG TRANSDERM (08:49)
--- NOTE | 2024-09-18 14:45 | W.PN.ID1 ---
Date of Service
Date of Service: September 18, 2024
Today's Communication
Continue daptomycin. Place midline.
Assessment / Plan
MRSA bacteremia
-Suspect secondary to fingers
Bilateral finger frostbite
Elevated CRP
Recommendations:
Repeat blood cultures have been obtained to assess for clearance.
Echocardiogram without vegetation.
Transition to daptomycin.
Blood cultures negative at 48 h. Will order PICC / Midline
Home infusion sheet has been given to Case management
Will follow up in the office in 2 weeks.
Local care to the fingers. Areas of frostbit will need time to demarcate. Patient to follow with Ortho.
����������������������������������������������������������
Chief Complaint
-: Bacteremia (MRSA) and Other (Bilateral fingertip frostbite)
Subjective / Review of Systems
Review of Systems: No Fever and No Chills
Vital Signs / Physical Exam
Vital Signs
Vital Signs
Temp Pulse Resp BP Pulse Ox
98.3 F 82 18 151/91 98
09/18/24 07:30 09/18/24 07:30 09/18/24 07:30 09/18/24 07:30 09/18/24 07:30
Physical Exam
Constitutional: No Acute Distress, Comfortable and Non-toxic
Eyes: Sclera Anicteric
Cardiovascular: S1/S2; Negative S3/S4
Pulmonary: Non Labored
Gastrointestinal: Soft and Non Tender
Extremities: Other (Several fingertips with some dermal gangrene and dry wounds. No active drainage. fingers swollen)
Neurological: Awake and Alert
Psychological: Calm
Objective Data
Lab Data
Lab Results
09/17/24 07:28
09/17/24 07:28
Estimated Creat Clear 76 ml/min 09/17/24 07:28
Total Bilirubin 0.5 mg/dl (0.2-1.3) 09/16/24 13:05
AST 26 U/L (17-59) 09/16/24 13:05
ALT 19 U/L (0-50) 09/16/24 13:05
Alkaline Phosphatase 72 U/L (38-126) 09/16/24 13:05
Most recent labs reviewed.
Micro Results:
09/16/24 13:05 Blood Culture - Preliminary
Blood/Venous No Growth in 48 hours- Final report to follow
09/16/24 13:05 Blood Culture - Preliminary
Blood/Venous No Growth in 48 hours- Final report to follow
09/13/24 12:34 Blood Culture - Preliminary
Blood/Venous Gram Stain - Preliminary
Staph aureus MRSA
Organism 1 Staph aureus MRSA
1. Staph aureus MRSA
M.I.C. RX
--------- ---
Amoxicillin/Potas. Clavulanate <=4/2 R
Ampicillin >8 R
Clindamycin <=0.5 S
Gentamicin <=4 S
Erythromycin >4 R
Levofloxacin <=1 S
Oxacillin >2 R
Tetracycline <=4 S
Trimethoprim/Sulfamethoxazole <=0.5/9.5 S
Vancomycin 1 S
Imaging:
09/13/2024 X-ray bilateral hands: No fracture. Resorption of the distal crissy of the second and third fingers bilaterally compatible with acro osteolysis. The carpal rows are preserved bilaterally. Mild degenerative changes of the distal radial
and ulnar joints bilaterally.
Care Review
Plan reviewed with: Other Provider (Resident)
[2024-09-18 15:00] VITALS: BP 141/95
--- NOTE | 2024-09-18 15:18 | CM ---
Chart reviewed and patient is for home with IV ABX. Options reviewed and patient has selected [facility]. Referral sent to [facility].
Plan; Home with IV ABX.
[2024-09-18] MEDS: LOVENOX 40 MG SC (15:24)
[2024-09-18] MEDS: CUBICIN 12 MG IV (17:05)
[2024-09-18 23:55] VITALS: BP 164/83
[2024-09-19] MEDS: DILAUDID 0.5 MG IV ×3 (00:27→09:32)
[2024-09-19 06:32] LABS: Creatine Phosphokinase 25 U/L (55-170)
[2024-09-19 07:30] VITALS: BP 155/74
--- NOTE | 2024-09-19 07:36 | W.PN.HOSP.TC ---
Addendum entered and electronically signed by Bill Mckeon MD 09/19/24 15:56:
MRSA bacteremia�continue IV daptomycin per ID recommendations via midline
Frostbite follow-up with outpatient Ortho eval for demarcation pain management Percocet x 3 days provided
More than 30 minutes spent in discharge including
Final examination of the patient
Summarizing hospital stay
Instructions for continuing care to all relevant caregivers
Preparation of discharge records, prescriptions, and referral forms
Total time spent (in minutes): 33min
Original Note:
Today's Communication/Plan
-
DC home with IV antibiotics daptomycin.
Mid line placed. For home infusion
Assessment / Plan
Assessment / Plan
Assessment/plan
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
-Ortho input appreciated, no surgical intervention, allow for demarcation
-IV Dilaudid as needed
-Hand x-ray 09/13 there is resorption of the distal crissy of the second and third fingers bilaterally compatible with acro-osteolysis. The carpal rows are preserved bilaterally. There are mild degenerative changes of the distal radial ulnar joints
bilaterally.
#MRSA bacteremia
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
-Blood cultures obtained 09/13 positive for MRSA bacteremia 1 out of 2
-Repeat blood cultures x 2 NGTD
-transitioned to daptomycin, midline placed. For home infusion
-ID consulted, input appreciated
-Echocardiogram- no significant valvular disease, no obvious vegetations visualized. LVEF 60-65%
-Follow temp, WBC
#Right ankle pain
-Ankle x-ray unremarkable. Consider MRI as an outpatient
#Right elbow pain
-Elbow x-ray no evidence of acute fracture or dislocation
#Active Smoker
-Nicotine Patch
#BMI 17.2, underweight
CODE STATUS-full code
DVT prophylaxis:Lovenox
Anticipated Discharge: Today
Subjective/Interval History
-
Date of Service: September 19, 2024
Objective Data
-
Vital Signs:
Vital Signs
Temp Pulse Resp BP Pulse Ox
98.4 F 80 16 164/83 95
09/18/24 23:55 09/18/24 23:55 09/18/24 23:55 09/18/24 23:55 09/18/24 23:55
I&O
09/18/24 09/19/24 09/20/24
06:59 06:59 06:59
Intake Total 480 / 480 1080 / 1080
Balance 480 / 480 1080 / 1080
Review of Systems
-
All other systems: Reviewed and negative (Except as documented)
Physical Exam
-
General: Well Developed, Well Nourished and No Apparent Distress
Respiratory: Clear to Auscultation
Cardiac: Regular Rhythm and S1/S2
GI: Soft, Nontender, Nondistended and Normal Bowel Sounds
Skin: Other (On the right hand, right thumb, middle and ring distal phalanx with eschar present at the tip. On the left hand, left thumb, index, middle distal phalanx with eschar present at the tip))
Neuro: Awake, Alert, Oriented and AO x 3
Psych: Calm
[2024-09-19] MEDS: NICODERM TRANSDERMAL 14 MG TRANSDERM (09:08)
--- NOTE | 2024-09-19 09:50 | CM ---
sr. strategic sourcing manager reviewed patient's chart and pillowcase turner received a call back from [facility], plan for liaison to come to hospital today to teach, zero copay per [facility]. Script and clinical sent to [facility] need to send Midline
information.
Plan; Patient is for discharge to home today with home infusion.
--- NOTE | 2024-09-19 10:15 | W.DCSUMMARY ---
Discharge Summary
Discharge Data
Date of Admission: 09/16/24
Date of Discharge: 09/19/24
-
Pending Results: No
Hospital Course
Brief hospital course; This is a 59-year-old male with past medical history of right index finger osteomyelitis s/p amputation 2013 at the DIP joint level after trauma to the fingers, who presented to ER complaining of pain and redness at the
distal tip of fingers bilateral hand. Patient was recently in the ED 09/13/2024 due to frostbite injury of some of his fingers. X-ray of bilateral fingers at the ED visit 09/13 showed acro-osteolysis involving the distal crissy of the second and
third fingers of both hands, likely related to frostbite injury. At that ED visit, cultures were obtained and he was discharged to follow-up Ortho as an outpatient. Cultures returned back positive for MRSA Staph aureus 1 out of 2. Patient states
pain was uncontrollable despite taking Percocet, and with positive MRSA bacteremia, he was asked to return back to the ED. On presentation to ER, BP 148/76, pulse 62, respiratory rate 18, afebrile, with O2 sat 97% on room air. CBC with WBC 5.8,
hemoglobin 13.6, hematocrit 39.9, platelets 143. Electrolytes showed sodium 137, potassium 3.7, creatinine 0.7.
Due to acro-osteolysis bilateral hand, orthopedics was consulted to evaluate patient. Per orthopedic recommendation, it is best to allow the area to demarcate as it may take weeks for this. In addition, there was no evidence of proximal infection,
no drainage. Recommendation of orthopedics was to follow-up in the office for outpatient eval and treatment. Due to positive blood culture, ID was consulted. Patient was initially started on vancomycin. Repeat cultures were ordered which have
been negative to date. An echocardiogram was ordered which showed no significant valvular disease, no obvious vegetations visualized. LVEF 60-65%. Patient eventually transitioned to daptomycin IV therapy. Midline was placed and he will be
discharged home for home infusion with daptomycin. Throughout the course of his hospital stay, WBC was normal, he reported no fevers, temperature was normal.
Discharge Plan
-
Patient Disposition: Home (Routine Discharge)
Discharge Diagnosis/Procedures: MRSA bacteremia
Acro-osteolysis
Condition: Fair
Diet: As tolerated
Activity: As tolerated
Driving Restrictions: As prior to admission
Referrals:
Shannan Vazquez DO [Family Provider] - in one month
Johnie Antoine MD [Active] - in less than 1 week
Additional Discharge Medication Instructions: Outpatient IV Daptomycin
Prescriptions:
New
oxycodone-acetaminophen [Percocet] 10-325 mg tablet
1 tab PO Q8H PRN (Reason: Pain) 3 Days Qty: 21 0RF
Continued
ibuprofen [Advil] 200 mg Tablet
200 mg PO Q6HPRN PRN (Reason: mild pain)
Discontinued
hydrocodone-acetaminophen 5-325 mg tablet
1 tab PO Q8HPRN PRN (Reason: mild Pain)
Discharge Orders:
Discharge Patient (As Directed); Ordered 09/19/24
Ordered By: Joe John
Discharge Date and Time
Print Language: DANISH
[2024-09-19 12:28] VITALS: BP 139/90
--- NOTE | 2024-09-19 12:32 | W.PN.ID1 ---
Date of Service
Date of Service: September 19, 2024
Today's Communication
Continue daptomycin.
Assessment / Plan
MRSA bacteremia
-Suspect secondary to fingers
Bilateral finger frostbite
Elevated CRP
Recommendations:
Repeat blood cultures negative.
Echocardiogram without vegetation.
Continue daptomycin to complete a 14-day course from first negative blood culture.
Home infusion sheet has been given to Case management
Will follow up in the office in 2 weeks.
Local care to the fingers. Areas of frostbit will need time to demarcate. Patient to follow with Ortho.
����������������������������������������������������������
Chief Complaint
-: Bacteremia (MRSA) and Other (Bilateral fingertip frostbite)
Subjective / Review of Systems
Review of Systems: No Fever and No Chills
Vital Signs / Physical Exam
Vital Signs
Vital Signs
Temp Pulse Resp BP Pulse Ox
99.0 F 82 18 139/90 97
09/19/24 12:28 09/19/24 12:28 09/19/24 12:28 09/19/24 12:28 09/19/24 12:28
Physical Exam
Constitutional: No Acute Distress, Comfortable and Non-toxic
Eyes: Sclera Anicteric
Cardiovascular: S1/S2; Negative S3/S4
Pulmonary: Non Labored
Gastrointestinal: Soft and Non Tender
Extremities: Other (Several fingertips with some dermal gangrene and dry wounds. No active drainage. fingers swollen)
Neurological: Awake and Alert
Psychological: Calm
Lines: PICC (LUE Midline)
Objective Data
Lab Data
Lab Results
09/17/24 07:28
09/17/24 07:28
Estimated Creat Clear 76 ml/min 09/17/24 07:28
Total Bilirubin 0.5 mg/dl (0.2-1.3) 09/16/24 13:05
AST 26 U/L (17-59) 09/16/24 13:05
ALT 19 U/L (0-50) 09/16/24 13:05
Alkaline Phosphatase 72 U/L (38-126) 09/16/24 13:05
Most recent labs reviewed.
Micro Results:
09/16/24 13:05 Blood Culture - Preliminary
Blood/Venous No Growth in 48 hours- Final report to follow
09/16/24 13:05 Blood Culture - Preliminary
Blood/Venous No Growth in 48 hours- Final report to follow
09/13/24 12:34 Blood Culture - Preliminary
Blood/Venous Gram Stain - Preliminary
Staph aureus MRSA
Organism 1 Staph aureus MRSA
1. Staph aureus MRSA
M.I.C. RX
--------- ---
Amoxicillin/Potas. Clavulanate <=4/2 R
Ampicillin >8 R
Clindamycin <=0.5 S
Gentamicin <=4 S
Erythromycin >4 R
Levofloxacin <=1 S
Oxacillin >2 R
Tetracycline <=4 S
Trimethoprim/Sulfamethoxazole <=0.5/9.5 S
Vancomycin 1 S
Imaging:
09/13/2024 X-ray bilateral hands: No fracture. Resorption of the distal crissy of the second and third fingers bilaterally compatible with acro osteolysis. The carpal rows are preserved bilaterally. Mild degenerative changes of the distal radial
and ulnar joints bilaterally.
[2024-09-19] MEDS: MOTRIN 400 MG PO (13:13)
[2024-09-19] MEDS: CUBICIN 12 MG IV (13:15)
== END 2024-09-19 13:15 | disposition home or self-care (01) | DRG 923 ==
LOC: 4 WEST ACU 15:36
PROVIDERS: Registered Nurse; Student in an Organized Health Care Education/Training Program; ADMITTING PHYSICIAN Hospitalist; CONSULT PHYSICIAN Orthopaedic Surgery; EMERGENCY PHYSICIAN Emergency Medicine; FAMILY PHYSICIAN Family Medicine; OTHER PHYSICIAN Internal Medicine Infectious Disease
DX: T34.532A Frostbite with tissue necrosis of left finger(s), initial encounter (principal); R78.81 Bacteremia; Z68.1 Body mass index [BMI] 19.9 or less, adult; T34.531A Frostbite with tissue necrosis of right finger(s), initial encounter; M89.541 Osteolysis, right hand; M89.542 Osteolysis, left hand; M25.571 Pain in right ankle and joints of right foot; M25.521 Pain in right elbow; F17.210 Nicotine dependence, cigarettes, uncomplicated; R63.6 Underweight; B95.62 Methicillin resistant Staphylococcus aureus infection as the cause of diseases classified elsewhere; Z88.0 Allergy status to penicillin; X31.XXXA Exposure to excessive natural cold, initial encounter
CPT/HCPCS: 73070; 73600; 80048; 80053; 82550; 85025; 87040; 93306; 96365; 96366; 99285; J0878

== ENCOUNTER → 2024-10-04 12:37 | Outpatient (REF) | payer BC, SELFPAY | LOC: WOUND 12:37 | PROVIDERS: ATTENDING PHYSICIAN Surgery; FAMILY PHYSICIAN Orthopaedic Surgery | DX: S61.200A Unspecified open wound of right index finger without damage to nail, initial encounter (principal); S61.202A Unspecified open wound of right middle finger without damage to nail, initial encounter; S61.203A Unspecified open wound of left middle finger without damage to nail, initial encounter; S61.201A Unspecified open wound of left index finger without damage to nail, initial encounter; X58.XXXA Exposure to other specified factors, initial encounter | CPT/HCPCS: 97597; 99213 ==